=== PATIENT | male | born 1985 | race Caucasian/White ===

== ENCOUNTER 2017-10-08 01:32 | Inpatient (IN) | payer MEDICARE, OTHER ==
--- NOTE | 2017-10-08 02:22 | PDOC ---
History of Present Illness - General History Source: Patient - History of Present Illness Initial Comments: 10/08/17 02:26 32 year old male with no reported PMH presents to our ED this morning c/o abdominal pain. Pain is "stabbing" 10/10, localized to his RUQ with no identifiable relieving factors. Endorses 2 episodes of NBNB vomiting. Denies fevers/chills, diarrhea/constipation. Patient states the pain started while he was eating peppers and tamales around 8 p.m. Patient often eats peppers and tamales without any associated abdominal pain. Patient denies chest pain, shortness of breath, dysuria/hematuria, penile/ scrotal pain. NKDA Surgical: denies Social: denies nicotine, denies alcohol, denies recreational drugs PMD: None - will refer to resident clinic <Bailey Marquez - Last Filed: 10/08/17 22:45> <Alva Haney - Last Filed: 10/09/17 06:07> - General Chief Complaint: Pain Stated Complaint: ABDOMINAL PAIN Time Seen by Provider: 10/08/17 02:09 Past History - Suicide/Smoking/Psychosocial Hx Smoking History: Never smoked Have you smoked in the past 12 months: No Hx Alcohol Use: No Drug/Substance Use Hx: No Substance Use Type: None <Bailey Marquez - Last Filed: 10/08/17 22:45> <Alva Haney - Last Filed: 10/09/17 06:07> - Past Medical History Allergies/Adverse Reactions: Allergies Allergy/AdvReac Type Severity Reaction Status Date / Time No Known Allergies Allergy Verified 10/08/17 02:24 Home Medications: Ambulatory Orders NK [No Known Home Medication] 10/08/17 Review of Systems - Review of Systems Constitutional: No: Chills, Fever Respiratory: No: Cough, Shortness of Breath Cardiac (ROS): No: Chest Pain, Lightheadedness, Palpitations, Syncope ABD/GI: Yes: Nausea, Vomiting, Abdominal cramping. No: Constipated, Diarrhea : No: Burning, Dysuria All Other Systems: Reviewed and Negative <Bailey Marquez - Last Filed: 10/08/17 22:45> *Physical Exam - Physical Exam General Appearance: Yes: Nourished, Appropriately Dressed Neck: positive: Trachea midline, Supple Respiratory/Chest: positive: Lungs Clear, Normal Breath Sounds Cardiovascular: positive: S1, S2. negative: Edema, JVD Gastrointestinal/Abdominal: positive: Tender, Decreased BS, Other ((+) Zapata's sign) Musculoskeletal: negative: CVA Tenderness (R), CVA Tenderness (L) Extremity: positive: Normal Capillary Refill, Normal Inspection Integumentary: positive: Normal Color, Dry, Warm Neurologic: positive: Fully Oriented, Alert <Bailey Marquez - Last Filed: 10/08/17 22:45> - Vital Signs Last Vital Signs Temp Pulse Resp BP Pulse Ox 98.3 F 65 20 123/65 99 10/08/17 21:35 10/08/17 21:35 10/08/17 21:40 10/08/17 21:35 10/08/17 21:40 <Alva Haney - Last Filed: 10/09/17 06:07> ED Treatment Course - LABORATORY CBC & Chemistry Diagram: 10/08/17 03:00 10/08/17 03:00 <Bailey Marquez - Last Filed: 10/08/17 22:45> - LABORATORY CBC & Chemistry Diagram: 10/08/17 03:00 10/08/17 03:00 - ADDITIONAL ORDERS Additional order review: 10/08/17 03:00 RBC 4.96 MCV 88.1 MCHC 34.0 RDW 13.1 MPV 9.0 Neutrophils % 67.0 Lymphocytes % 23.3 D Monocytes % 7.3 Eosinophils % 1.5 Basophils % 0.9 - RADIOLOGY Radiology Studies Ordered: Category Date Time Status ABDOMEN US -LIMITED [US] Stat Ultrasound 10/08/17 04:34 Completed - Medications Given in the ED: ED Medications Discontinued Medications Generic Name Dose Route Start Last Admin Trade Name Freq PRN Reason Stop Dose Admin Famotidine 20 mg in 12 mls @ 144 mls/hr 10/08/17 02:53 10/08/17 03:26 Pepcid 20 Mg/12 Ml Push IVPUSH 10/08/17 02:57 144 mls/hr ONCE ONE Administration Sodium Chloride 1,000 mls @ 125 mls/hr 10/08/17 09:15 10/08/17 14:30 Normal Saline - IV 125 mls/hr ASDIR PABLO Administration Ketorolac Tromethamine 30 mg 10/08/17 03:31 10/08/17 03:34 Toradol Injection - IVPUSH 10/08/17 03:32 30 mg ONCE ONE Administration Sodium Chloride 1,000 ml 10/08/17 02:35 10/08/17 03:26 Normal Saline - IV 10/08/17 02:36 1,000 ml ONCE ONE Administration <Alva Haney - Last Filed: 10/09/17 06:07> Medical Decision Making - Medical Decision Making 10/08/17 02:31 32 year old male with no PMH presents with acute onset of abdominal pain. PE significant for (+) Zapata's sign. Frontal diagnosis: cholecystitis, early appendicitis, pancreatitis, gastritis/gastroenteritis. Will obtain belly labs, UA. Reassess. 10/08/17 04:33 Lipase wnL, Latic Acid wnL, symptomatic improvement with Toradol. Bedside U/S shows 0.80 cm stone, normal sized CBD. Will ED Obs patient @ 4 hour tito pending a.m. ultrasound. 10/08/17 06:08 Patient accepted to ED OBS. Will plan for U/S later this a.m. Patient signed out to Dr. Leach (Resident) and Dr. Duckworth (Attending) <Bailey Marquez - Last Filed: 10/08/17 22:45> *DC/Admit/Observation/Transfer <Bailey Marquez - Last Filed: 10/08/17 22:45> <Alva Haney - Last Filed: 10/09/17 06:07> Diagnosis at time of Disposition: Cholelithiasis - Discharge Dispostion Condition at time of disposition: Fair
[2017-10-08 02:24] VITALS: BMI 30.4
[2017-10-08] MEDS ORDERED: SODIUM CHLORIDE 0.9% 500 ML INFUS.BAG IV ONE (02:35)
--- NOTE | 2017-10-08 02:51 | PDOC ---
Attending Attestation - HPI HPI: The patient is a 32 year old male with no significant past medical history who presents to the emergency department complaining of abdominal pain. The patient reports right upper quadrant abdominal pain which began after he ate tamales and peppers around 8pm(10/07). The patient describes the pain as stabbing in nature and ranked 10/10 in severity. The patient reports 2 episodes of nonbloody /nonbilious emesis. The patient reports eating tamales and peppers often without any abdominal pain. Denies testicular pain. The patient denies chest pain, shortness of breath, headache, and dizziness. Denies fevers, chills, nausea, diarrhea, and constipation. Denies dysuria, frequency, urgency, and hematuria. Allergies: NKDA Family History: Gallstones (Mother), Kidney stones (Father) Past surgical history: Patient denies. Social history: Former smoker (quit 7 years ago). Last alcohol consumption 4 years ago. No reported drug use. PCP: None. - Physicial Exam PE: GENERAL: Awake, alert, and fully oriented, in no acute distress HEAD: No signs of trauma EYES: PERRLA, EOMI, sclera anicteric, conjunctiva clear ENT: Auricles normal inspection, hearing grossly normal, nares patent, oropharynx clear without exudates. Moist mucosa NECK: Normal ROM, supple, no lymphadenopathy, JVD, or masses LUNGS: Breath sounds equal, clear to auscultation bilaterally. No wheezes, and no crackles HEART: Regular rate and rhythm, normal S1 and S2, no murmurs, rubs or gallops ABDOMEN: (+)RUQ extremely tender to palpation, but not as much in RLQ. (+)Some guarding noted. No rebound. No masses MUSCULOSKELETAL: (+)Right flank pain with palpation and percussion. EXTREMITIES: Normal range of motion, no edema. No clubbing or cyanosis. No cords, erythema, or tenderness NEUROLOGICAL: Cranial nerves II through XII grossly intact. Normal speech, normal gait SKIN: Warm, Dry, normal turgor, no rashes or lesions noted. <Cody Oseguera - Last Filed: 10/08/17 03:31> - Resident Resident Name: Bailey Marquez - ED Attending Attestation I have performed the following: I have examined & evaluated the patient, The case was reviewed & discussed with the resident, I agree w/resident's findings & plan - Medical Decision Making 10/08/17 03:28 Pt comes with RUQ pain that began after eating his usual homemade tamales. He has never had this pain in the past. He has gained a little weight recently ( 5lbs) and he states that his mom has a hx of GB stones. His dad has a hx of renal stones. Pt has no dysuria and no flank pain. Exam is consistent with GB disease or biliary colic. Pt's WBC is elevated. Chem is pending. Sono will be done in the AM when the sono dept opens. 10/08/17 06:35 Pt has been here over 4 hrs. We will make him ED obs. Day team and hospitalists are aware. <Alva Haney - Last Filed: 10/08/17 06:36> Attestations - Attestations Documentation prepared by Cody Oseguera, acting as medical front desk specialist for Alva Haney MD. <Cody Oseguera - Last Filed: 10/08/17 03:31>
[2017-10-08] MEDS ORDERED: FAMOTIDINE IV 20 MG/12 ML VIAL IVPUSH ONE (02:53)
[2017-10-08] MEDS ORDERED: FAMOTIDINE 20 MG/50 ML IVPB 20 MG/50 ML MG IVPB ONE (03:14)
[2017-10-08 03:22] LABS: BASO % 0.9 % (0-2.0); EOS % 1.5 % (0-4.5); HEMATOCRIT 43.7 % (35.4-49); HEMOGLOBIN 14.8 GM/dL (11.7-16.9); LYMPH % 23.3 % (8-40); MCH 29.9 pg (25.7-33.7); MEAN CELL VOLUME 88.1 fl (80-96); MONO % 7.3 % (3.8-10.2); PLATELET COUNT 240 K/MM3 (134-434); RBC 4.96 M/mm3 (4.00-5.60); RDW 13.1 % (11.9-15.9); WHITE BLOOD COUNT 11.2 K/mm3 (4.0-10.0)
[2017-10-08] MEDS ORDERED: KETOROLAC TROMETHAMINE 30 MG/1 ML VIAL IVPUSH ONE (03:31)
[2017-10-08] MEDS ORDERED: KETOROLAC TROMETHAMINE 30 MG/1 ML VIAL ONE (03:32)
[2017-10-08 03:42] LABS: ALBUMIN 3.7 g/dl (3.4-5.0); ANION GAP 4 (8-16); BILIRUBIN,TOTAL 0.3 mg/dL (0.2-1.0); BLOOD UREA NITROGEN 10 mg/dL (7-18); CALCIUM 8.5 mg/dL (8.5-10.1); CHLORIDE 106 mmol/L (98-107); CO2 29 mmol/L (21-32); CREATININE 0.9 mg/dL (0.7-1.3); GLUCOSE,RANDOM 119 mg/dL (74-106); LIPASE 119 U/L (73-393); POTASSIUM 4.3 mmol/L (3.5-5.1); SGOT/AST 18 U/L (15-37); SGPT/ALT 28 U/L (12-78); SODIUM 139 mmol/L (136-145); TOT PROT 7.3 g/dl (6.4-8.2)
[2017-10-08 03:43] LABS: ALK PHOS 92 U/L (45-117)
[2017-10-08 03:45] LABS: URINE APPEARANCE CLEAR; URINE BILIRUBIN NEGATIVE (<2.0 mg/dL); URINE COLOR STRAW; URINE GLUCOSE (UA) NEGATIVE (NEGATIVE); URINE KETONE NEGATIVE (NEGATIVE); URINE LEUK ESTERASE NEGATIVE (NEGATIVE); URINE NITRITE NEGATIVE (NEGATIVE); URINE PROTEIN NEGATIVE (NEGATIVE); URINE UROBILINOGEN NEGATIVE mg/dL (0.2-1.0)
--- NOTE | 2017-10-08 07:44 | PDOC ---
*Physical Exam - Vital Signs Last Vital Signs Temp Pulse Resp BP Pulse Ox 98.0 F 67 14 105/54 99 10/08/17 06:45 10/08/17 06:45 10/08/17 06:45 10/08/17 06:45 10/08/17 06:45 ED Treatment Course - LABORATORY CBC & Chemistry Diagram: 10/08/17 03:00 10/08/17 03:00 - ADDITIONAL ORDERS Additional order review: Laboratory Results 10/08/17 10/08/17 10/08/17 03:00 03:00 03:00 Sodium 139 Potassium 4.3 Chloride 106 Carbon Dioxide 29 Anion Gap 4 L BUN 10 Creatinine 0.9 Creat Clearance w eGFR > 60 Random Glucose 119 H Lactic Acid 1.7 Calcium 8.5 Total Bilirubin 0.3 AST 18 ALT 28 Alkaline Phosphatase 92 Total Protein 7.3 Albumin 3.7 Lipase 119 Urine Color Straw Urine Appearance Clear Urine pH 5.0 Ur Specific [place] 1.011 Urine Protein Negative Urine Glucose (UA) Negative Urine Ketones Negative Urine Blood Negative Urine Nitrite Negative Urine Bilirubin Negative Urine Urobilinogen Negative Ur Leukocyte Esterase Negative 10/08/17 03:00 RBC 4.96 MCV 88.1 MCHC 34.0 RDW 13.1 MPV 9.0 Neutrophils % 67.0 Lymphocytes % 23.3 D Monocytes % 7.3 Eosinophils % 1.5 Basophils % 0.9 - Medications Given in the ED: ED Medications Discontinued Medications Generic Name Dose Route Start Last Admin Trade Name Freq PRN Reason Stop Dose Admin Famotidine 20 mg in 12 mls @ 144 mls/hr 10/08/17 02:53 10/08/17 03:26 Pepcid 20 Mg/12 Ml Push IVPUSH 10/08/17 02:57 144 mls/hr ONCE ONE Administration Ketorolac Tromethamine 30 mg 10/08/17 03:31 10/08/17 03:34 Toradol Injection - IVPUSH 10/08/17 03:32 30 mg ONCE ONE Administration Sodium Chloride 1,000 ml 10/08/17 02:35 10/08/17 03:26 Normal Saline - IV 10/08/17 02:36 1,000 ml ONCE ONE Administration Medical Decision Making - Medical Decision Making 10/08/17 07:34 Patient pending formal abdominal ultrasound to confirm gall stones 10/08/17 08:36 Numerous gall stones seen on US. Pending formal read. No obvious signsof infection, no obvious thickening of the gall bladder wall, but since patient is symptomatic, pain with positive richards's sign, will contact the Surgeon pension agent and likely admit the patient to hospitalist service. white count -11.2, but no elevated enzymes, lipas-119 10/08/17 08:48 Dr Duckworth discussed with the surgeon- Dr Santiago and the patient has been accepted for admission 10/08/17 09:44 *DC/Admit/Observation/Transfer Diagnosis at time of Disposition: Cholelithiasis - Discharge Dispostion Condition at time of disposition: Fair Admit: Yes - Referrals - Patient Instructions - Post Discharge Activity
[2017-10-08] MEDS: SODIUM CHLORIDE 1,000 ML IV SCH ×2 (09:38→14:30)
[2017-10-08 10:16] LABS: INR 1.04 (0.82-1.09); PROTHROMBIN TIME (PATIENT) 11.7 SEC (9.98-11.88)
[2017-10-08 10:19] LABS: ACTIVATED PTT 30.9 SECONDS (26.9-34.4)
--- NOTE | 2017-10-08 18:51 | HP ---
Admitting History and Physical - Admission Chief Complaint: RUQ pain History of Present Illness: 32yo M with h/o childhood asthma presented to ER with RUQ pain beginning last night after eating tamales and jalapenos (the tamales were greasy ). He has never had this pain before, but it was associated with 2 episodes of n /v, nb/nb. Improved in ER after Toradol. No fever/chills, no diarrhea, last normal BM today. In ER, he was afebrile, wbc 11.2, normal LFTs and lipase, and US showed gallstones including one at 3cm, possibly another over 1cm at neck on one of the images, without signs of cholecystitis. His pain has improved to almost none, and he has had IV fluids and been NPO. Preop labs were obtained. He is admitted to the surgical service for biliary colic with possible impacted stone. He does not have a PMD, and will be referred to one on discharge. History Source: Patient Limitations to Obtaining History: Language Barrier (Urdu - translation facilitated at bedside by Cassandra Landa RN) - Past Medical History Pulmonary: Yes: Asthma (as child, no problems since 12yo) - Past Surgical History Past Surgical History: Yes: None - Smoking History Smoking history: Former smoker (smoked couple cigs/day for ~3 yrs) Have you smoked in the past 12 months: No If you are a former smoker, when did you quit?: 7 years ago - Alcohol/Substance Use Hx Alcohol Use: No (quit 5 yrs ago, used to drink heavily for ~3 yrs) History of Substance Use: reports: None - Social History Usual Living Arrangement: Yes: With Spouse (and 2 young children) ADL: Independent Occupation: construction Home Medications - Allergies Allergies/Adverse Reactions: Allergies Allergy/AdvReac Type Severity Reaction Status Date / Time No Known Allergies Allergy Verified 10/08/17 02:24 - Home Medications Home Medications: Ambulatory Orders NK [No Known Home Medication] 10/08/17 Family Disease History - Family Disease History Family Disease History: Other: Father (kidney stones), Mother (gallstones) Review of Systems - Review of Systems Constitutional: denies: Chills, Fever, Loss of Appetite Eyes: denies: Blurred Vision, Recent Change in Vision HENT: denies: Difficult Swallowing, Nasal Congestion, Throat Pain Neck: denies: Swollen Glands, Tenderness Cardiovascular: denies: Chest Pain, Palpitations Respiratory: denies: Cough, SOB Gastrointestinal: reports: Abdominal Pain (with hpi), Nausea (with hpi but not now), Vomiting (with hpi). denies: Constipation, Diarrhea Genitourinary: denies: Burning, Dysuria Musculoskeletal: denies: Back Pain, Joint Pain, Muscle Pain Integumentary: denies: Change in Color, Rash Neurological: denies: Dizziness, Headache Psychiatric: denies: Anxiety, Depression Physical Examination Vital Signs: Vital Signs Temperature 98.4 F 10/08/17 17:06 Pulse Rate 66 10/08/17 17:06 Respiratory Rate 20 10/08/17 17:06 Blood Pressure 136/79 10/08/17 17:06 O2 Sat by Pulse Oximetry (%) 99 10/08/17 11:03 Constitutional: Yes: Well Nourished, No Distress, Calm Eyes: Yes: Conjunctiva Clear, EOM Intact. No: Sclera Icterus HENT: Yes: Atraumatic, Normocephalic Neck: Yes: Supple, Trachea Midline Cardiovascular: Yes: Regular Rate and Rhythm. No: Murmur Respiratory: Yes: Regular, CTA Bilaterally Gastrointestinal: Yes: Normal Bowel Sounds, Soft, Abdomen, Obese, Tenderness ( mild RUQ, no R/G). No: Distention, Tenderness, Epigastrium, Tenderness, Rebound ...Rectal Exam: Yes: Deferred Renal/: No: CVA Tenderness - Left, CVA Tenderness - Right Musculoskeletal: No: Back Pain (no direct tenderness), Joint Stiffness, Joint Swelling Extremities: No: Cool, Cyanosis Edema: No Peripheral Pulses WNL: Yes Integumentary: No: Jaundice, Rash Neurological: Yes: Alert, Oriented Psychiatric: Yes: Alert, Oriented Labs: CBC, BMP 10/08/17 03:00 10/08/17 03:00 CMP Sodium 139 mmol/L (136-145) 10/08/17 03:00 Potassium 4.3 mmol/L (3.5-5.1) 10/08/17 03:00 Chloride 106 mmol/L (98-107) 10/08/17 03:00 Carbon Dioxide 29 mmol/L (21-32) 10/08/17 03:00 Anion Gap 4 (8-16) L 10/08/17 03:00 BUN 10 mg/dL (7-18) 10/08/17 03:00 Creatinine 0.9 mg/dL (0.7-1.3) 10/08/17 03:00 Creat Clearance w eGFR > 60 (>60) 10/08/17 03:00 Random Glucose 119 mg/dL (74-106) H 10/08/17 03:00 Lactic Acid 1.7 mmol/L (0.0-2.0) 10/08/17 03:00 Calcium 8.5 mg/dL (8.5-10.1) 10/08/17 03:00 Total Bilirubin 0.3 mg/dL (0.2-1.0) 10/08/17 03:00 AST 18 U/L (15-37) 10/08/17 03:00 ALT 28 U/L (12-78) 10/08/17 03:00 Alkaline Phosphatase 92 U/L (45-117) 10/08/17 03:00 Total Protein 7.3 g/dl (6.4-8.2) 10/08/17 03:00 Albumin 3.7 g/dl (3.4-5.0) 10/08/17 03:00 Lipase 119 U/L (73-393) 10/08/17 03:00 INR, PTT INR 1.04 (0.82-1.09) 10/08/17 09:53 Urine Test Results Urine Color Straw 10/08/17 03:00 Urine Appearance Clear 10/08/17 03:00 Urine pH 5.0 (5.0-8.0) 10/08/17 03:00 Ur Specific [place] 1.011 (1.001-1.035) 10/08/17 03:00 Urine Protein Negative (NEGATIVE) 10/08/17 03:00 Urine Glucose (UA) Negative (NEGATIVE) 10/08/17 03:00 Urine Ketones Negative (NEGATIVE) 10/08/17 03:00 Urine Blood Negative (NEGATIVE) 10/08/17 03:00 Urine Nitrite Negative (NEGATIVE) 10/08/17 03:00 Urine Bilirubin Negative (<2.0 mg/dL) 10/08/17 03:00 Ur Leukocyte Esterase Negative (NEGATIVE) 10/08/17 03:00 Imaging - Results Ultrasound: Report Reviewed, Image Reviewed (images personally reviewed - 3cm gallstone in fundus, may be another just over 1cm in neck of GB; no wall thickening, no pericholecystic fluid, cbd ~5mm) Problem List - Problems (1) Calculus of gallbladder without cholecystitis without obstruction Assessment/Plan: admit to surgery NPO/IVF until after surgery pain meds prn - nonnarcotic as effective DVT prophylaxis periop antibiotics Discussed with patient risks, benefits and alternatives of laparoscopic possible open cholecystectomy, including but not limited to bleeding, infection , injury to adjacent structures, bile leak or ductal injury, intraabdominal abscess, need for further procedures, hernia; alternatives include delayed or no surgery - risks of this include recurrence of biliary colic, cholecystitis, cholangitis, pancreatitis and sequelae. Patient desires to proceed with operation - will take to OR tomorrow for above. Informed consent signed for same. anticipate resuming po postop lifting restrictions postop likely to stay 2 midnights; may go home Monday if all goes as expected once ambulating, voiding, monik po, pain controlled with oral meds Code(s): K80.20 - CALCULUS OF GALLBLADDER W/O CHOLECYSTITIS W/O OBSTRUCTION (2) RUQ pain Assessment/Plan: improved Code(s): R10.11 - RIGHT UPPER QUADRANT PAIN (3) Asthma Assessment/Plan: has not needed tx since age 12 Code(s): J45.909 - UNSPECIFIED ASTHMA, UNCOMPLICATED Qualifiers: Asthma severity: mild Asthma persistence: intermittent Asthma complication type: uncomplicated Qualified Code(s): J45.20 - Mild intermittent asthma, uncomplicated (4) Obesity Code(s): E66.9 - OBESITY, UNSPECIFIED Qualifiers: Obesity type: due to excess calories Obesity classification: adult class 1 (BMI 30 - 34.9) Serious obesity comorbidity presence: without serious comorbidity Body mass index: BMI 30.0-30.9 Qualified Code(s): E66.09 - Other obesity due to excess calories; Z68.30 - Body mass index (BMI) 30.0-30.9, adult; Z68.30 - Body mass index (BMI) 30.0-30.9, adult
[2017-10-08] MEDS ORDERED: IBUPROFEN 600 MG TABLET (FP) PO PRN (19:05)
[2017-10-08] MEDS ORDERED: ONDANSETRON 4 MG/2 ML VIAL IVPUSH PRN (19:08)
[2017-10-08] MEDS ORDERED: ACETAMINOPHEN 325 MG TABLET (FP) PO PRN (19:12)
[2017-10-08] MEDS ORDERED: ALBUTEROL SO4 18 GM HFA INHALER IH PRN (19:12)
[2017-10-08] MEDS ORDERED: D5-1/2NS+20 MEQ KCL - 20 MEQ/1,000 ML INFUS.BAG IV SCH (19:15)
[2017-10-09 07:05] LABS: BASO % 0.8 % (0-2.0); EOS % 2.2 % (0-4.5); HEMATOCRIT 43.2 % (35.4-49); HEMOGLOBIN 14.6 GM/dL (11.7-16.9); LYMPH % 36.7 % (8-40); MCH 29.7 pg (25.7-33.7); MCHC 33.8 g/dl (32.0-35.9); MEAN PLT VOLUME 8.5 fl (7.5-11.1); MONO % 8.5 % (3.8-10.2); NEUT % 51.8 % (42.8-82.8); PLATELET COUNT 228 K/MM3 (134-434); RBC 4.91 M/mm3 (4.00-5.60); RDW 12.9 % (11.9-15.9); WHITE BLOOD COUNT 7.6 K/mm3 (4.0-10.0)
[2017-10-09 07:28] LABS: ALBUMIN 3.4 g/dl (3.4-5.0); ALK PHOS 88 U/L (45-117); ANION GAP 6 (8-16); BILIRUBIN,TOTAL 0.7 mg/dL (0.2-1.0); BLOOD UREA NITROGEN 7 mg/dL (7-18); CALCIUM 8.6 mg/dL (8.5-10.1); CHLORIDE 108 mmol/L (98-107); CO2 28 mmol/L (21-32); CREATININE 0.8 mg/dL (0.7-1.3); GLUCOSE,RANDOM 90 mg/dL (74-106); LIPASE 145 U/L (73-393); POTASSIUM 3.9 mmol/L (3.5-5.1); SGOT/AST 20 U/L (15-37); SGPT/ALT 25 U/L (12-78); SODIUM 142 mmol/L (136-145); TOT PROT 6.8 g/dl (6.4-8.2)
[2017-10-09] MEDS ORDERED: PROPOFOL 20 ML ONE (14:26)
[2017-10-09] MEDS ORDERED: ROCURONIUM BROMIDE 50 MG/5 ML VIAL ONE (14:26)
[2017-10-09] MEDS ORDERED: fentaNYL CITRATE 250 MCG/5 ML VIAL ONE (14:26)
[2017-10-09] MEDS ORDERED: MIDAZOLAM HCL 2 MG/2 ML SINGLE DOSE VIAL ONE (14:27)
[2017-10-09] MEDS ORDERED: BUPIVACAINE HCL/PF 0.5% (5MG/ML) 10 ML VIAL ONE (14:28)
[2017-10-09] MEDS ORDERED: cefOXitin SODIUM 1 GM VIAL (RESTRICTED TO ID) IVPB ONE (15:01)
[2017-10-09] MEDS ORDERED: CEFOXITIN SODIUM 1 GM IVPB ONE (15:02)
[2017-10-09] MEDS ORDERED: DEXAMETHASONE SOD PHOSPHATE 4 MG/1 ML VIAL ONE (15:25)
[2017-10-09] MEDS ORDERED: BENZOIN/ALOE VERA/STORAX/TOLU 58 ML BOTTLE ONE (16:20)
[2017-10-09] MEDS ORDERED: BUPIVACAINE HCL/PF 0.5% (5MG/ML) 10 ML VIAL IJ ONE (16:22)
--- NOTE | 2017-10-09 16:45 | OP ---
Operative Note - Note: Operative Date: 10/09/17 Pre-Operative Diagnosis: biliary colic with impacted stone Operation: laparoscopic cholecystectomy Findings: few thin adhesions to gallbladder, large stones palpable in gb; critical view identified, branch of artery was bleeding prior to clipping only Post-Operative Diagnosis: Same as Pre-op Surgeon: Derrick Chamberlain Felt Cementer: Geraldo Roy Anesthesiologist/LAUNDRY ROUTEMAN: Janett Andrew Anesthesia: General, Local (20ml 0.5% marcaine) Specimens Removed: gallbladder to pathology Estimated Blood Loss (mls): 10 Fluid Volume Replaced (mls): 1,100 (crystalloid) Operative Report Dictated: Yes
[2017-10-09] MEDS ORDERED: KETOROLAC TROMETHAMINE 30 MG/1 ML VIAL ONE (16:47)
[2017-10-09] MEDS ORDERED: KETOROLAC TROMETHAMINE 30 MG/1 ML VIAL IVPUSH ONE ×2 (16:52→17:00)
[2017-10-09] MEDS ORDERED: oxyCODONE HCL 5 MG TABLET PO PRN ×2 (16:52→17:48)
[2017-10-09] MEDS ORDERED: LACTATED RINGERS SOLUTION 1,000 ML IV SCH (17:00)
[2017-10-09] MEDS ORDERED: ONDANSETRON 4 MG/2 ML VIAL IVPUSH PRN (17:48)
[2017-10-09] MEDS ORDERED: ALBUTEROL SO4 18 GM HFA INHALER IH PRN (17:48)
[2017-10-09] MEDS ORDERED: ACETAMINOPHEN 325 MG TABLET (FP) PO SCH (18:00)
[2017-10-09] MEDS: IBUPROFEN 600 MG TABLET (FP) PO SCH (20:26)
[2017-10-09] MEDS: D5-1/2NS+20 MEQ KCL - 20 MEQ/1,000 ML INFUS.BAG IV SCH (20:28)
[2017-10-09] MEDS ORDERED: IBUPROFEN 600 MG TABLET (FP) PO SCH (21:00)
[2017-10-09] MEDS ORDERED: CEFOXITIN SODIUM 1 GM in DEXTROSE 5%-WATER - 100 ML IVPB ONE (21:00)
[2017-10-10] MEDS: IBUPROFEN 600 MG TABLET (FP) PO SCH ×2 (02:06→08:46)
[2017-10-10] MEDS: D5-1/2NS+20 MEQ KCL - 20 MEQ/1,000 ML INFUS.BAG IV SCH (04:46)
[2017-10-10] MEDS: ACETAMINOPHEN 325 MG TABLET (FP) PO SCH ×3 (06:36→12:12)
--- NOTE | 2017-10-10 08:37 | PN ---
Progress Note (short form) - Note Progress Note: POD #1 - s/p laparoscopic cholecystectomy under GA. VSS. Pt. doing well, sitting up eating breakfast in bed. No complaints. No apparent anesthetic complications noted. Continue current care.
[2017-10-10 10:56] VITALS: BP 128/75; PULSE 88; TEMP 98.7
--- NOTE | 2017-10-10 11:44 | DS ---
Physical Examination Vital Signs: Vital Signs Temperature 98.7 F 10/10/17 10:00 Pulse Rate 88 10/10/17 10:00 Respiratory Rate 18 10/10/17 10:00 Blood Pressure 128/75 10/10/17 10:00 O2 Sat by Pulse Oximetry (%) 97 10/10/17 09:00 Findings/Remarks: Pt seen up in room, examined in bed. Feeling well, ate breakfast, has voided and had BM. Pain minimal, controlled with Tylenol and ibuprofen, alternating. Has not needed anything stronger. Ambulating well. Using IS. Constitutional: Yes: Well Nourished, No Distress, Calm Eyes: Yes: Conjunctiva Clear, EOM Intact. No: Sclera Icterus HENT: Yes: Atraumatic, Normocephalic Neck: Yes: Supple, Trachea Midline Cardiovascular: Yes: Regular Rate and Rhythm. No: Murmur Respiratory: Yes: Regular, CTA Bilaterally. No: Wheezes Gastrointestinal: Yes: Normal Bowel Sounds, Soft, Abdomen, Obese, Tenderness ( mild RUQ and incisional, no true/guard) Musculoskeletal: No: Joint Stiffness, Joint Swelling Extremities: No: Cool, Cyanosis Integumentary: Yes: Incision (x4 dressed). No: Jaundice, Rash Wound/Incision: Yes: Clean/Dry, Well Approximated, Steri Strips (under dressings ), Dressing Dry and Intact (x4). No: Dressing Removed Neurological: Yes: Alert, Oriented Labs: CBC, BMP 10/09/17 06:00 10/09/17 06:00 Discharge Summary Reason For Visit: CHOLELITHIASIS Current Active Problems Asthma (Acute) Calculus of gallbladder without cholecystitis without obstruction (Acute) Obesity (Acute) RUQ pain (Acute) Procedures: Principal: laparoscopic cholecystectomy Hospital Course: 32yo M with childhood asthma presented to ER with acute RUQ pain and 2 episodes of vomiting, and was found on US to have large gallstones without signs of cholecystitis. WBC was 11.2, LFTs and lipase normal. His pain improved with medication, he was made NPO and given IV fluids. He was admitted to surgery and taken for laparoscopic cholecystectomy with findings of very large stones and thin adhesions over the gallbladder suggestive of chronic cholecystitis. Postoperatively, he has done well, ambulating, voiding, tolerating regular diet and having had a BM. Pain has been minimal and controlled with nonnarcotic oral meds. He is discharged home to follow up in 2 weeks. He is also referred to a primary care physician to establish care, and has seen social work to apply for insurance. Time spent on discharge: 35 minutes Condition: Good - Instructions Diet, Activity, Other Instructions: Postoperative instructions: You had a laparoscopic cholecystectomy on 10/09/[address] Derrick Chamberlain of [facility]. Activity: Resume your usual activities gradually, but no heavy exertion or lifting more than 10-15 pounds for 1 month. Remove dressings 48 hours after surgery; sticky tapes underneath will fall off by themselves. You may shower daily starting then, just pat the incision areas dry. No bath or swimming until skin incisions have healed. Eat lightly at first, but advance to your usual diet as tolerated. You have permission to be at work next week with lifting restrictions, but if you are not ready or able to do so, you will get a note excusing you from work until you are ready, when you are seen by Dr. Chamberlain in the clinic. Pain: For pain, you may use and alternate Tylenol (acetaminophen) and/or ibuprofen every 6 hours each as needed; this means that you can take one OR the other at 3-hour intervals. Do not take more than 4000mg of acetaminophen in a day. Take medications as prescribed or indicated on the labeling. Follow-up: Call Dr. Cahmberlain's office at [phone] to make your postop appointment (Monday ~2 weeks after surgery). Clinic is held in the [facility] on the first floor of [facility]. Call the office if you have: * increasing pain not responsive to pain medication * fever of 101F or higher * vomiting * unusual or increasing bleeding or drainage from wounds * increasing redness or swelling at wound sites Also, you have been referred to a primary care physician, either Dr. Huffman or Dr. Ely. Both are in [facility] down the street from the hospital. Call to make an appointment with one of them within 1- 2 weeks. Referrals: Baltazar Huffman MD [Staff Physician] - (You may call for an appointment with either doctor.) Todd Ely MD [Staff Physician] - (You may call for an appointment with either doctor.) Disposition: HOME - Home Medications Comprehensive Discharge Medication List: Ambulatory Orders Acetaminophen [Tylenol .Regular Strength -] 650 mg PO Q6H tablet 10/10/17 Ibuprofen [Motrin -] 600 mg PO Q6H tablet 10/10/17
--- NOTE | 2017-10-12 01:02 | OP ---
DATE OF OPERATION: 10/09/2017 PREOPERATIVE DIAGNOSIS: Biliary colic with impacted stone. POSTOPERATIVE DIAGNOSIS: Biliary colic with impacted stone. PROCEDURE: Laparoscopic cholecystectomy. SURGEON: Derrick Chamberlain M.D. CARE PROGRAM DIRECTOR: Geraldo Roy M.D. ANESTHESIA: General endotracheal and local 20 mL 0.5% Marcaine. ESTIMATED BLOOD LOSS: 10 mL. FLUIDS: 1100 mL crystalloid. SPECIMEN: Gallbladder to pathology. FINDINGS: A few thin adhesions to the gallbladder, large stones palpable in the gallbladder. The critical view was identified and branch of the cystic artery was bleeding prior to its clipping only. DISPOSITION: Stable and extubated to PACU. INDICATION FOR PROCEDURE: The patient is a 32-year-old male with a history of childhood asthma who presented to the emergency room with right upper quadrant pain beginning the night prior after a fatty meal. He had never had this pain before, but it was associated with 2 episodes of nausea and vomiting which improved in the emergency room after Toradol. He had no other associated symptoms, in emergency room was afebrile with a white count of 11, normal liver functions and lipase. Ultrasound showing large gallstones in the gallbladder including one approximately 3 cm and another at least 1 cm in the region of the neck of the gallbladder, without signs of cholecystitis. He was given IV fluids, kept n.p.o., and admitted to the surgical service. Risks, benefits, and alternatives of laparoscopic, possible open cholecystectomy including but not limited to bleeding, infection, injury to adjacent structures, bile leak or ductal injury, intraabdominal abscess, hernia, need for further procedures, and alternatives of delayed or no surgery with attendant risks of recurrence of biliary colic, cholecystitis, cholangitis, or pancreatitis were discussed with the patient, who desires to proceed with the operation, and signed informed consent for the same. OPERATIVE TECHNIQUE: Patient was brought to the operating room and laid supine on the operating table. Sequential compression devices were applied to bilateral lower extremities and 1 g of cefoxitin was given as preoperative antibiotic. After induction and intubation by anesthesia, the patient's abdomen was prepped and draped in sterile fashion. A small supraumbilical midline incision was made with a scalpel and carried into subcutaneous tissues with electrocautery, until the abdominal wall fascia was identified, scored and elevated with Alexi clamps. The peritoneum was entered bluntly with the tip of a clamp, and a fingertip was inserted to ensure entry into the abdominal cavity and absence of any underlying adhesions. A stay suture of 0 Vicryl was then placed in the fascia in aopxgn-an-hvhpo fashion for later closure and the Esteban trocar introduced directly into the abdominal cavity and secured in place with the balloon. The abdomen was insufflated with carbon dioxide, and the patient was placed in reverse Trendelenburg position, and the laparoscope inserted to inspect the abdominal cavity. The gallbladder was visible at the edge of the liver underneath the omentum. An additional 5-mm port was placed in the subxiphoid area under direct vision. Through this port, a grasper was used to sweep the omentum inferiorly, revealing the gallbladder with some thin adhesions of the omentum overlying the anterior wall. Some of these were swept down bluntly. Two additional 5-mm ports were then placed in the right upper quadrant also under direct vision, through which graspers were introduced, first to grasp the fundus of the gallbladder and elevate it over the liver edge, the 2nd was then used to grasp the infundibulum of the gallbladder and retract it laterally, after facilitating the peeling down of the rest of the adhesions with a [place] in the operative port. There were at least a couple of large stones palpable in the gallbladder, 1 in the fundus and 1 down toward the neck. Dissection at the base of the gallbladder with a [place] dissector was then undertaken to identify the cystic duct, and ultimately the cystic artery. The cystic duct was identifiable first, and the critical view was obtained from both medial and lateral sides confirming this was the only structure directly entering the gallbladder. This was then clipped, 2 proximally and 1 distally with Endoclips and divided with endoscissors. Careful dissection posteriorly and just medially to this area behind the lymph node of Calot was then undertaken, and what was initially thought to be the artery isolated, clipped 2 proximally and 1 distally, and divided with endoscissors, at which point there was a small steady stream of bleeding noted from what appeared to be a branch of the cystic artery itself just behind this. Two additional clips were placed which succeeded in slowing the bleeding. Additional dissection with the [place] dissector was then undertaken to clearly identify the arterial structure. The suction project management instructor was used to continue to clear the field and suction both fluid and blood to facilitate visualization. The clips themselves were actually noted to be on some peritoneal tissue anterior to the artery itself with 1 likely having clipped the branch of it that was bleeding. The artery itself was then clearly isolated entirely with the [place] dissector and clipped, 2 proximally and 1 distally with the Endoclips, and then divided with endoscissors. The stump appeared to pulsate, and there was no further bleeding noted. Again, the suction project management instructor was used to clear the field. The hook cautery was then used to begin taking the gallbladder off the liver bedj. This was accomplished both medially and laterally up the sides, and as the gallbladder came off the liver bed, a few small areas of bleeding from the liver bed were cauterized with the hook cautery as we went. Once the gallbladder fundus had been completely from the liver edge, the camera was switched to the subxiphoid port, and the gallbladder placed in an Endocatch bag through the umbilical port and retrieved out of that location. It was passed off for a pathology specimen. Again, more than 1 large stone was palpable in the gallbladder after its retrieval. Once the Esteban trocar and pneumoperitoneum had been reestablished, the camera was returned to the umbilical site, and the operative field reinspected for hemostasis. Suction project management instructor was used to cleanse the liver bed, and both blood and fluid were suctioned from both the operative site and above the liver edge, and there was no active bleeding noted. The clips were reidentified, noted to be intact, and again without any bleeding. The 5-mm ports were then removed under direct vision, the patient returned to neutral position, and the camera and Esteban trocar also removed, and the abdomen exsufflated of carbon dioxide. The stay suture at the umbilical site was tied to close the fascia there. Local anesthetic was infiltrated into all 4 port sites, and skin was then closed with 4-0 Vicryl subcuticular sutures, including a running at the umbilical site. Benzoin and Steri-Strips were applied to each of the incisions, then dressings of gauze and Tegaderm were placed over these. Counts were correct at the end of the procedure. The patient was then awakened and extubated by anesthesia. He was returned to a stretcher and moved to the recovery room in stable condition, having tolerated the procedure well. Dr. Roy was an essential orthodontist assistant throughout the procedure, including assisting with entry into the abdominal cavity, manipulation and retraction of the gallbladder throughout the case, and closure of the skin at the conclusion. Derrick Chamberlain M.D. [id number] MTDD
--- NOTE | 2017-10-13 15:56 | PATH ---
Surgical Pathology Report Patient Name: REILLY NUÑEZ Med. Rec. #: [id number] /Age/Gender: 1985 (Age: 32) / M Account: [id number] Location: [facility] MED/SURG Taken: 10/09/2017 Received: 10/11/2017 Reported: 10/13/2017 Physicians: Kristian Doan M.D. Specimen(s) Received GALLBLADDER Clinical History Biliary colic with impacted stone Final Diagnosis GALLBLADDER, LAPAROSCOPIC CHOLECYSTECTOMY: CHRONIC CHOLECYSTITIS WITH CHOLELITHIASIS. ONE BENIGN PERIDUCTAL LYMPH NODE (0/1). Electronically Signed Jyoti Montoya M.D. Gross Description Received in formalin, labeled "gallbladder," is a 10.8 x 2.8 x 2.8 cm. gallbladder with a 0.2 cm. in length portion of cystic duct attached. There is a 1.2 cm in greatest dimension periductal lymph node present. The outer surface is blakely recinos and varies from smooth to shaggy. The lumen contains green, tenacious bile as well as 2 blakely, ovoid choleliths measuring 2.2 and 3.4 cm in greatest dimension. The mucosa is green and focally eroded. The wall of the gallbladder averages 0.1 cm. in thickness. Hat Marker sections are submitted in 2 cassettes as follows: 1-cystic duct margin and one whole bisected lymph node; 2-agency sales representative mucosa. /10/11/2017 saudi/10/11/2017
== END 2017-10-10 13:37 | disposition home or self-care (01) | DRG 263 ==
LOC: JER 01:32 → SUPCPDRO 01:32 → JERBED 06:03 → J8W 12:09 → OBSVTOIN 19:06
PROVIDERS: ADMIT Surgery; ATTEND Surgery
PROC: 0FT44ZZ Resection of Gallbladder, Percutaneous Endoscopic Approach (ICD-10-PCS; principal; 2017-10-09 15:00)
DX: K80.20 Calculus of gallbladder without cholecystitis without obstruction (principal); E66.9 Obesity, unspecified; K80.10 Calculus of gallbladder with chronic cholecystitis without obstruction; Z68.30 Body mass index [BMI] 30.0-30.9, adult; J45.909 Unspecified asthma, uncomplicated
CPT/HCPCS: 36415; 76705-TC; 80053; 81003; 83605; 83690; 85025; 85610; 85730; 86850; 86900; 86901; 87086; 88304-TC; 94760; 99283-25; G0378; J7030